=== PATIENT | female | born 1960 | race Caucasian/White ===

== ENCOUNTER → 2016-03-08 | Outpatient (CLI) | payer BC ==
--- NOTE | 2016-03-08 10:05 | MA ---
Screening Digital Mammogram With Tomosynthesis Clinical Indications: Routine screening. Comparison: Mammograms February 19, 2015, February 15, 2014, February 15, 2013, February 11, 2012, Nove mber 2010, October 20, 2009. Technique: Standard cephalocaudal projections are obtained. Digital breast tomosynthesis was performe d in the MLO projection with reconstruction at 1.0 mm slice thickness and composite MLO views reconst ructed. This examination is processed by the [employer] computer aided detection system. Breast density: Type C: The breast tissue is heterogeneously dense, which may obscure small masses. Findings: CAD was reviewed. No suspicious calcifications, masses, or areas of architectural distorti on are identified. Heterogeneously dense breast parenchyma reduces sensitivity for noncalcified mass es. Impression: Negative mammogram. BI-RADS 1. Recommendation: Routine screening is recommended in one year, as long as physical examination is maria luisa ign in this patient with moderately dense breast parenchyma. [facility] will send a result letter to the patient. Negative mammography should not preclude additional workup of a clinically suspicious finding. The patient's information is entered into a reminder system with a target due date for her next mammo gram.
== END ==
LOC: FIMAGING 08:05
DX: Z12.31 Encounter for screening mammogram for malignant neoplasm of breast (principal)
CPT/HCPCS: G0202

== ENCOUNTER → 2016-04-08 | Outpatient (CLI) | payer BC | LOC: FIMAGING 15:02 | PROVIDERS: ATTEND Internal Medicine | DX: J20.9 Acute bronchitis, unspecified (principal) ==

== ENCOUNTER → 2017-03-13 | Outpatient (CLI) | payer BC | LOC: FIMAGING 15:44 | PROVIDERS: ATTEND Obstetrics & Gynecology Gynecology | DX: Z12.31 Encounter for screening mammogram for malignant neoplasm of breast (principal) ==

== ENCOUNTER → 2018-04-13 | Outpatient (CLI) | payer BC | LOC: FIMAGING 15:40 | PROVIDERS: ATTEND Obstetrics & Gynecology Gynecology | DX: Z12.31 Encounter for screening mammogram for malignant neoplasm of breast (principal) ==

== ENCOUNTER 2018-04-21 11:49 | Observation (INO) | payer BC ==
--- NOTE | 2018-04-21 06:20 | PDHPUP ---
History & Physical Update H&P update statement: This history and physical update is based on an assessment of the patient which was completed after admission or registration (within 24 hours), but prior to the surgery/procedure. H&P update: H&P reviewed & patient examined, no change in patient's condition since H&P completed
[~2018-04-21 11:49] MED LIST: ROPIVACAINE 0.2% 80 MG, EPINEPHrine 0.2 MG, KETOROLAC TROMETHAMINE 30 MG in SYRINGE 0 ML IU ONE; TRANEXAMIC ACID 3,000 MG in NS (SYRINGE) 50 ML IRR ONE; TRANEXAMIC ACID 3,000 MG/50 ML BAG IRR ONE
[2018-04-21] MEDS ORDERED: VANCOMYCIN 1 GM VIAL ONE (11:50)
[2018-04-21] MEDS ORDERED: FAMOTIDINE 20 MG TAB PO ONE (12:15)
[2018-04-21] MEDS ORDERED: ACETAMINOPHEN 325 MG TAB PO ONE (12:15)
[2018-04-21] MEDS ORDERED: ceFAZolin 2 GM/DEXTROSE 100 ML IV ONE (12:15)
[2018-04-21] MEDS ORDERED: LR 1,000 ML IV ONE (12:15)
[2018-04-21] MEDS ORDERED: DEXAMETHASONE 4 MG/ML VIAL IVP ONE (12:15)
--- NOTE | 2018-04-21 13:35 | PDANEPAE ---
ANE Past Medical History - Cardiovascular History Hx Hypertension: Yes Hx Arrhythmias: No Hx Chest Pain: No Hx Coronary Artery / Peripheral Vascular Disease: No Hx CHF / Valvular Disease: No Hx Palpitations: No Cardiovascular History Comment: DVT FOLLOWING INTERNATIONAL FLIGHT 2002. 2ND INCIDENT A FEW YRS LATER AND TXD W/COUMADIN FOR SEVERAL MOS - Pulmonary History Hx COPD: No Hx Asthma/Reactive Airway Disease: No Hx Recent Upper Respiratory Infection: No Hx Oxygen in Use at Home: No Hx Sleep Apnea: No Sleep Apnea Screening Result - Last Documented: Negative - Neurologic History Hx Cerebrovascular Accident: No Hx Seizures: No Hx Dementia: No - Endocrine History Hx Diabetes: No - Renal History Hx Renal Disorders: No Renal History Comment: HEMATURIA OCCAS SINCE TEENS - MONITORED - Liver History Hx Hepatic Disorders: No - Neurological & Psychiatric Hx Hx Neurological and Psychiatric Disorders: No - Cancer History Hx Cancer: No - Congenital Disorder History Hx Congenital Disorders: No - GI History Hx Gastrointestinal Disorders: Yes Gastrointestinal History Comment: GERD - Other Health History Other Health History: SENSITIVE SKIN - Chronic Pain History Chronic Pain: Yes (L KNEE) - Surgical History Prior Surgeries: COLONOSCOPY. WISDOM TEETH ANE Review of Systems Review of Systems: - Exercise capacity METS (RN): 5 METS ANE Patient History - Allergies Allergies/Adverse Reactions: bacitracin [From Neosporin] Allergy (Verified 04/08/18 12:46) Rash bacitracin zinc [From Neosporin] Allergy (Verified 03/19/11 17:41) gramicidin D [From Neosporin] Allergy (Verified 04/08/18 12:46) Rash iodine [Iodine] Allergy (Verified 04/08/18 12:46) Rash latex Allergy (Verified 04/01/18 13:33) Rash neomycin sulfate [From Neosporin] Allergy (Verified 04/08/18 12:46) Rash polymyxin B [From Neosporin] Allergy (Verified 04/08/18 12:46) Rash polymyxin B sulfate [From Neosporin] Allergy (Verified 03/19/11 17:41) - Home Medications Home Medications: Aspirin [Aspirin 81mg (*)] 81 mg PO DAILY 04/01/18 [Last Taken 2 Weeks Ago ~] Ibuprofen [Motrin (*)] 400 mg PO BID 04/01/18 [Last Taken 2 Weeks Ago ~04/07/18] Omeprazole 40 mg PO DAILY PRN 04/01/18 [Last Taken 2 Weeks Ago ~04/07/18] Ranitidine HCl [Zantac] 300 mg PO HS 04/01/18 [Last Taken 04/20/18] Triamterene/Hctz 37.5/25 [Dyazide 37.5/25 (*)] 1 each PO DAILY 04/01/18 [Last Taken 04/20/18] - NPO status NPO Since - Liquids (Date): 04/21/18 NPO Since - Liquids (Time): 10:40 NPO Since - Solids (Date): 04/20/18 NPO Since - Solids (Time): 19:00 - Smoking Hx Smoking Status: Never smoked - Family Anes Hx Family Hx Anesthesia Complications: NEG ANE Labs/Vital Signs - Vital Signs Blood Pressure: 121/79 Heart Rate: 63 Respiratory Rate: 16 O2 Sat (%): 98 Height: 166.37 cm Weight: 84.368 kg ANE Physical Exam - Airway Mallampati Score: Class 2 - ASA Status ASA Status: II ANE Anesthesia Plan Anesthesia Plan: spinal Regional Anesthesia: adductor canal FNB
[2018-04-21] MEDS ORDERED: fentaNYL 100 MCG/2 ML INJ ONE ×2 (13:45→20:19)
[2018-04-21] MEDS ORDERED: PROPOFOL/EMULSION 500 MG/50 ML BOTTLE IV ONE (13:45)
[2018-04-21] MEDS ORDERED: MIDAZOLAM 2 MG/2 ML VIAL ONE (13:45)
[2018-04-21] MEDS ORDERED: BUPIVACAINE/DEXTROSE 7.5MG/ML 2 ML SPINAL AMP SP ONE (14:02)
[2018-04-21] MEDS ORDERED: ONDANSETRON 4 MG/2 ML VIAL ONE (14:03)
[2018-04-21] MEDS ORDERED: ROPIVACAINE HCL 150 MG/30 ML INJ ONE (14:18)
[2018-04-21] MEDS ORDERED: oxyCODONE IR 5 MG TAB PO PRN (14:35)
[2018-04-21] MEDS ORDERED: BISACODYL 10 MG SUPP PR PRN (14:35)
[2018-04-21] MEDS ORDERED: ONDANSETRON DISINTEGRATING 4 MG TAB PO PRN (14:35)
[2018-04-21] MEDS ORDERED: diphenhydrAMINE 25 MG CAP PO PRN (14:35)
[2018-04-21] MEDS ORDERED: CYCLOBENZAPRINE 10 MG TAB PO PRN (14:35)
[2018-04-21] MEDS ORDERED: PROMETHAZINE HCL 25 MG SUPPR PR PRN (14:35)
[2018-04-21] MEDS ORDERED: DIPHENOXYLATE/ATROPINE LOMOTIL 1 TAB PO PRN (14:35)
[2018-04-21] MEDS ORDERED: PROMETHAZINE HCL 25 MG/ML INJ IVP PRN (14:35)
[2018-04-21] MEDS ORDERED: TEMAZEPAM 15 MG CAP PO PRN (14:35)
[2018-04-21] MEDS ORDERED: MAGNESIUM HYDROXIDE 30 ML UDCUP PO PRN (14:35)
[2018-04-21] MEDS ORDERED: ONDANSETRON 4 MG/2 ML VIAL IVP PRN (14:35)
[2018-04-21] MEDS ORDERED: POLYETHYLENE GLYCOL 3350 17 GM PKT PO PRN (14:35)
[2018-04-21] MEDS ORDERED: METOCLOPRAMIDE 10 MG/2 ML VIAL IVP PRN (14:35)
[2018-04-21] MEDS ORDERED: LACTULOSE 20 GM/30 ML UDCUP PO PRN (14:35)
[2018-04-21] MEDS ORDERED: PHENYLEPHRINE HCL 100 MCG/ML SYR ONE (14:48)
[2018-04-21] MEDS ORDERED: LR 1,000 ML IV SCH (15:00)
--- NOTE | 2018-04-21 15:14 | POSTOPPROG ---
Post Op Note Date of Operation: 04/21/18 Surgeon: Chris De La Cruz Retail Sales Merchandiser Development: Harriet Morris PAc, Catarina De La Cruz PAc Anesthesiologist: Jami Anesthesia: Spinal Pre-op Diagnosis: L knee DJD Post-op Diagnosis: same Indication: pain Procedure: L TKA Findings: DJD knee Inf/Abcess present in the surg proc area at time of surgery?: No EBL: 50-100
[2018-04-21] MEDS ORDERED: fentaNYL 100 MCG/2 ML INJ IVP PRN (15:43)
[2018-04-21] MEDS ORDERED: HYDROmorphONE/DILAUDID 2 MG/ML INJ IVP PRN (15:43)
[2018-04-21] MEDS ORDERED: LR 500 ML IV PRN (15:43)
[2018-04-21] MEDS ORDERED: PHENYLEPHRINE HCL 100 MCG/ML SYR IVP PRN (15:43)
[2018-04-21] MEDS ORDERED: NALOXONE HCL 0.4 MG/ML INJ IVP PRN (15:43)
--- NOTE | 2018-04-21 15:51 | POSTANESTH ---
Post Anesthetic Evaluation Cardiovascular Status: Similar to Pre-Op Cond Respiratory Status: Normal, Stable Level of Consciousness/Mental Status: Can Participate in Eval Pain Control: Adequate, Prn Tx Ordered Nausea/Vomiting Control: Adequate, Prn Tx Ordered Complications Possibly Related to Anesthesia: None Noted
[2018-04-21] MEDS ORDERED: WARFARIN SODIUM 5 MG TAB PO SCH (16:00)
[2018-04-21] MEDS ORDERED: MEPERIDINE 25 MG/0.5 ML AMP ONE (20:18)
[2018-04-21] MEDS ORDERED: HYDROmorphONE/DILAUDID 2 MG/ML INJ ONE (20:19)
[2018-04-21] MEDS: ACETAMINOPHEN 325 MG TAB PO SCH (20:45)
[2018-04-21] MEDS: FAMOTIDINE 20 MG TAB PO SCH (20:46)
[2018-04-21] MEDS: SENNOSIDES/DOCUSATE SODIUM TAB PO SCH (20:46)
[2018-04-21] MEDS: ceFAZolin 2 GM/DEXTROSE 100 ML IV SCH (21:56)
[2018-04-22] MEDS: ACETAMINOPHEN 325 MG TAB PO SCH ×2 (02:17→09:35)
[2018-04-22] MEDS: ceFAZolin 2 GM/DEXTROSE 100 ML IV SCH (05:13)
[2018-04-22 06:05] LABS: INR 1.07 (0.83-1.16); PROTIME(PATIENT) 13.5 SEC (12.0-15.0)
--- NOTE | 2018-04-22 07:30 | GCON ---
[f rep st] CONSULTATION DATE OF CONSULTATION: 04/22/2018 REFERRING PHYSICIAN: Dr. De La Cruz REASON FOR CONSULTATION: Bradycardia. SOURCE: The patient provides history, appears reliable. HISTORY OF PRESENT ILLNESS: This is a very pleasant, 57-year-old female with a past medical history significant for HTN, GERD, PE and DVT on chronic anticoagulation with Coumadin, as well as degenerati ve joint disease in the left knee, who is postop day #1, status post a left TKA. The patient tolerat ed the procedure very well. She had no postoperative complications or anesthesia complications. The Hospital Service was consulted early this morning for report of an episode of bradycardia into the 4 0s. The patient denies any chest pain, palpitations, lightheadedness, or shortness of breath. Her b aseline heart rate appears to be in the 70s. The patient did have fluids running postoperatively and these were discontinued overnight as the patient was tolerating oral hydration. Before my arrival, IV fluids were reinstated. The patient denies any previous history of complications from anesthesia or pain medications. REVIEW OF SYSTEMS: Ten systems reviewed. Negative, except as noted above. ALLERGIES: Bacitracin, iodine, latex, nickel, polymyxin B, neomycin. HOME MEDICATIONS: Triamterene/HCTZ, ibuprofen, aspirin, ranitidine, omeprazole. ACTIVE MEDICATIONS: Please see EMR. PAST MEDICAL HISTORY: PE, DVT on Coumadin, HTN, GERD, UTI. PAST SURGICAL HISTORY: Left knee arthroscopic surgery several years ago and now, a left total knee a rthroplasty, postop day #1. FAMILY HISTORY: Father , age 62, related to lung cancer, but he did have an CT in his 40s. Brother , age 55, due to melanoma. SOCIAL HISTORY: The patient lives with her family. She drinks very rare alcohol, maybe once per thu. No tobacco or illicit drug use or marijuana. COR STATUS: Full. PHYSICAL EXAMINATION: VITAL SIGNS: Available at time of interview, blood pressure is 112/72, pulse is 53, respiratory rate 18, O2 saturation 96% on 2 L by nasal cannula, temperature 36.7. GENERAL: N o acute distress. Very pleasant, adult female, who is lying comfortably in bed. HEAD: Normocephali c, atraumatic. EYES: Extraocular muscles are grossly intact. Pupils equal, round, reactive to ligh t bilaterally and symmetric. No scleral icterus or conjunctival injection. ENT: Mucous membranes a ppear moist. No oropharyngeal erythema or exudates. No nasal discharge. NECK: Supple. Trachea mi dline. CV: Regular rate and rhythm, slightly bradycardic in the 50s. No murmurs, rubs, or gallops appreciated. While in the room, the patient's heart rate was slightly variable from as low as 44 up to 74. Appears to be sinus on the monitor. RESPIRATORY: Unlabored breathing. Lungs are clear to a uscultation bilaterally. No wheezes, rales, or rhonchi appreciated. ABDOMEN: Hypoactive bowel soun ds. Soft and nontender to palpation. No rebound, guarding, or masses appreciated. EXTREMITIES: Th e patient without any cyanosis, clubbing, or edema appreciated. Left lower extremity range of motion is limited due to postoperative status, but otherwise is able to move all her other extremities. NE URO: Grossly nonfocal. No facial drooping. Moves extremities, as noted above. PSYCHIATRIC: Thoug ht process, content, and questions are all appropriate. The patient is pleasant and cooperative. LABORATORY STUDIES: From 04/20/2018, preoperatively, sodium 139, potassium 3.9, chloride 101, CO2 30 , anion gap is 8, BUN 17, creatinine is 1.0, GFR 57, glucose 99, calcium 9.9. A.m. labs are pending. ASSESSMENT AND PLAN: A pleasant, 57-year-old female postoperative day #1, status post a left total k nee arthroplasty with Dr. De La Cruz. 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 1. Bradycardia. The patient appears to be in sinus rhythm. She has not received any antihypertensi ves or recent sedatives or narcotics. The patient will continue on intravenous fluid supplementation . Her heart rate has improved and it does so when she moves. She is completely asymptomatic, but we will obtain an EKG. We will continue to monitor the patient at this time. No additional interventi ons besides EKG once available. 2. The patient's blood pressures are adequate. She is postoperative day 1 with plans to resume her Lovenox this morning for her history of pulmonary embolism, deep vein thrombosis. No evidence of hyp oxia or evidence of development of embolism. 3. Benign essential hypertension. Blood pressures at this time are acceptable. The patient's home medications have been resumed. She is typically on triamterene/HCTZ. No history of beta blockers, w hich may reduce her heart rate. Agree with continuing this. Morning labs are pending for morning re nal function. 4. Gastroesophageal reflux disease. Continue PPI and H2 colton. 5. Fluid, electrolyte, nutrition. Intravenous fluids, as noted above. Electrolytes adequate with r epeat laboratory studies pending at this time. Diet as per primary team. 6. Prophylaxis, on Lovenox and Coumadin. 7. COR status is full. 8. Disposition. The patient is on observation on Med/Surg floor postoperatively. /[id number]/MODL
[2018-04-22] MEDS ORDERED: TRIAMTERENE/HCTZ 37.5/25 1 EACH CAP PO SCH (09:00)
[2018-04-22] MEDS ORDERED: ENOXAPARIN 40 MG/0.4 ML SYR SC SCH (09:00)
--- NOTE | 2018-04-22 09:09 | SOAPPROG ---
SOAP Progress Note Assessment/Plan: Assessment: Patient is doing well POD 1 s/p L TKA Pain management: pain is well controlled on oral pain meds. VTE ppx: recommend coumadin for 3 weeks, lovenox daily for a few days due to history of PE and DVT, cont EVERT and SCDs Anemia: level is expected initially postop. Asymptomatic. Continue to monitor hypokalemia: K 3.3 today, was started on K supplement prior to surgery. encouraged patient to resume and to follow up with PCP in one week. She is on a diuretic at home. Hyponatremia: Na 131 today, restrict water intake to 1L for a few days. discuss with PCP in one week as well. bradycardia: HR in the 30s overnight, hospitalist evaluated this morning. EKG WNL. HR has improved today and improves with activity. D/c planning: Patient has done better than anticipated and would like to be discharged to home today. Patient must be released from PT before discharge to home. Plan: 04/22/18 09:05 04/22/18 09:08 Subjective: Laura is doing well today, denies SOB ,chest pain and n/v. states she saw hospitalist this morning for low heart rate Objective: Vital Signs Temp Pulse Resp BP Pulse Ox 36.8 C 62 17 108/69 94 04/22/18 07:32 04/22/18 07:32 04/22/18 07:32 04/22/18 07:32 04/22/18 07:32 Laboratory Results 04/22/18 04:49 04/22/18 04:49 04/21/18 04/22/18 04/23/18 05:59 05:59 05:59 Intake Total 3424 Output Total 600 Balance 2824 PT 13.5 SEC (12.0-15.0) 04/22/18 04:49 INR 1.07 (0.83-1.16) 04/22/18 04:49 LLE; incision dressing is clean and dry, NVI, +pf/df ICD10 Worksheet Patient Problems: Problems Problem Status Onset Primary localized osteoarthritis of left knee Acute
[2018-04-22] MEDS: SENNOSIDES/DOCUSATE SODIUM TAB PO SCH (09:37)
[2018-04-22 09:44] VITALS: BP 104/66
[2018-04-22] MEDS ORDERED: FAMOTIDINE 20 MG TAB ONE (09:47)
[2018-04-22] MEDS: FAMOTIDINE 20 MG TAB PO SCH (09:48)
--- NOTE | 2018-04-22 10:02 | ASMTLACE ---
LACE Length of stay for Answers: 2 days current admission Acuity / Level of Answers: No Care: Did the patient have an inpatient admission? Comorbidities - select Answers: Opioid dependence all that apply / Chronic pain Other Notes: HTN; DVT # of Emergency department Answers: 0 visits in the last 6 months Score: 7 Date Signed: 04/22/2018 10:01 AM Electronically Signed By:DION Quiñones
--- NOTE | 2018-04-22 10:56 | GDS ---
[f rep st] DISCHARGE SUMMARY ADMISSION DIAGNOSIS: Left knee osteoarthritis. DISCHARGE DIAGNOSIS: Left knee osteoarthritis. PROCEDURE: Left total knee arthroplasty, [employer]. VTE PROPHYLAXIS: Recommend Coumadin and Lovenox. BRIEF DESCRIPTION OF HOSPITAL STAY: Patient was admitted for an elective joint arthroplasty. The pa aida tolerated the procedure well and has passed physical therapy. The patient was given appropriat e antibiotic prophylaxis and venous thromboembolism prophylaxis. The patient's pain was well control led on oral pain medication, patient was holding down food, and had urinated. Decision was made to d ischarge the patient. The patient was given post-operative prescriptions pre-operatively. PLAN: Follow up as scheduled with Dr. De La Cruz's office, May 03, 8 a.m. I have requested our o ffice to call the patient and move that back another week and a half because that is a little early. She is always welcome to come in earlier if she has questions though. /[id number]/MODL
--- NOTE | 2018-04-22 14:20 | HOSPPROG ---
Hospitalist Progress Note Assessment/Plan: #Bradycardia: EKG personally reviewed. Slim, 1st degree block. HR increased with walking -likely from anesthesia -has heart monitor at home. Gave strict return precautions if symptomatic (dizzy , lightheaded, chest pain #Left TKA: per ortho Subjective: not dizzy or lightheaded. No CP Objective: Vital Signs Temp Pulse Resp BP Pulse Ox 36.8 C 62 17 104/66 94 04/22/18 07:32 04/22/18 07:32 04/22/18 07:32 04/22/18 09:38 04/22/18 07:32 Laboratory Results 04/22/18 04:49 04/22/18 04:49 04/21/18 04/22/18 04/23/18 05:59 05:59 05:59 Intake Total 3424 450 Output Total 600 200 Balance 2824 250 PT 13.5 SEC (12.0-15.0) 04/22/18 04:49 INR 1.07 (0.83-1.16) 04/22/18 04:49 - Time Spent With Patient Time Spent with Patient: greater than 25 minutes Time Spent with Patient: Greater than 25 minutes spent on this patients care, greater than 50% of time spent counseling, educating, and coordinating care regarding the above mentioned plan. - Physical Exam Constitutional: no apparent distress Eyes: PERRL Ears, Nose, Mouth, Throat: moist mucous membranes Cardiovascular: bradycardia, No systolic murmur Respiratory: no respiratory distress, no rales or rhonchi Gastrointestinal: normoactive bowel sounds Musculoskeletal: other (left knee braced, ice machine) Neurologic: AAOx3, CN II-XII Intact ICD10 Worksheet Patient Problems: Problems Problem Status Onset Primary localized osteoarthritis of left knee Acute
--- NOTE | 2018-04-22 16:34 | CPEKG ---
Test Reason : OPEN Blood Pressure : / mmHG Vent. Rate : 049 BPM Atrial Rate : 050 BPM P-R Int : 173 ms QRS Dur : 090 ms QT Int : 414 ms P-R-T Axes : 054 063 050 degrees QTc Int : 374 ms Sinus bradycardia Confirmed by Andrea Platt ([id number]) on 04/22/2018 4:34:37 PM Referred By: Chris De La Cruz Confirmed By:Andrea Platt
--- NOTE | 2018-04-22 16:48 | GOP ---
[f rep st] OPERATIVE REPORT DATE OF OPERATION: 04/21/2018 SURGEON: Julio De La Cruz MD GAS TRANSFER OPERATOR: Catarina De La Cruz PA-C, and Harriet Morris PA-C. ANESTHESIA: Spinal. PREOPERATIVE DIAGNOSIS: Left knee osteoarthritis. POSTOPERATIVE DIAGNOSIS: Left knee osteoarthritis. PROCEDURE PERFORMED: Left total knee arthroplasty. FINDINGS: ESTIMATED BLOOD LOSS: 30 cc. INDICATIONS: This is a 57-year-old female with severe and progressive pain and deformity of the left knee unresponsive to conservative care. Risks and benefits of the surgical intervention were explai oliva in detail. DESCRIPTION OF PROCEDURE: The patient was brought to the operative room and placed on the table in t he supine position. Spinal anesthesia was induced without difficulty. A pneumatic tourniquet was ap plied about the left proximal thigh, and the leg was prepped and draped in a sterile fashion. The le g avilez was applied. After exsanguination by elevation the tourniquet was inflated to 275 mm of pebbles cury. Incision was made anterior medial from the tibial tuberosity to a point 2 cm proximal to the superior pole of the patella. Medial parapatellar arthrotomy was carried out from the superior pole of the p atella and posteriorly in line with the fibers of the Type 2 VMO. The medial collateral ligament was elevated and the infrapatellar fat pad was resected. The patella was everted and the articular surface was excised. A 32 mm patellar button was placed. T he distal femoral guide hole was drilled and the 60 degree alignment queenie was placed. A 10 mm distal femoral cut was made without difficulty. Attention was turned to the tibia and a standard 9 mm cut based on the lateral tibial condyle was per formed. The tibial articular surface was excised without difficulty. Attention was turned back to the femur and a size 4 Journey II femoral cutting block was positioned. Anterior, posterior, and chamfer cuts were made, followed by the intercondylar box cut. The knee was extended and the remnants of the medial and lateral meniscus were excised. The posterio r capsule was injected with ropivacaine, epinephrine and Toradol. A size 4 Journey tibial tray was p ositioned. Trial reduction was then carried out. There was excellent range of motion, alignment, an d stability using the 9 mm polyethylene. All trials were then removed. The joint was thoroughly irrigated and carefully dried. Two packages of cement and 2 grams of vancomycin were mixed in the vacuum mixer and placed on the fixation surface s of all surfaces of the components. The components were implanted and all excess cement was thoroug hly removed. The permanent 9 mm polyethylene was placed without difficulty. The tourniquet was deflated and all bleeders were coagulated. The wound was thoroughly irrigated and closed using interrupted sutures of 2-0 Vicryl for the joint capsule. The subcu was closed with 3-0 Vicryl and the skin with 4-0 Monocryl. Dermabond and Steri-Strips were applied followed by a compre ssive dressing. The patient was then moved from the operating room to the recovery room in good cond ition, having tolerated the procedure well. PATHOLOGY: Severe tricompartmental osteoarthritis. /[id number]/MODL
== END 2018-04-22 13:04 | disposition home or self-care (01) ==
LOC: F3N 11:49 → EDSTATUS 12:00 → F3N 16:26
PROVIDERS: ADMIT Orthopaedic Surgery; ATTEND Orthopaedic Surgery
PROC: 0SRD0J9 Replacement of Left Knee Joint with Synthetic Substitute, Cemented, Open Approach (ICD-10-PCS; principal; 2018-04-21 14:00)
DX: M17.12 Unilateral primary osteoarthritis, left knee (principal); R00.1 Bradycardia, unspecified; D62 Acute posthemorrhagic anemia; E87.6 Hypokalemia; E87.1 Hypo-osmolality and hyponatremia; I10 Essential (primary) hypertension; K21.9 Gastro-esophageal reflux disease without esophagitis
CPT/HCPCS: 27447; 73560; 93005; 97116; 97161; G0378; C1713; J0171; J0690; J1100; J1170; J1650; J1885; J2175; J2250; J2370; J2405; J2704; J2795; J3010; J3370